=== PATIENT | female | born 1995 | race Caucasian/White ===

== ENCOUNTER 2018-11-04 12:32 | Emergency (ER) | payer MEDICAID ==
[2018-11-04 12:57] VITALS: Wt 61.4 kg
[2018-11-04] MEDS ORDERED: VISTARIL25 MG PO (15:34)
[2018-11-04 16:09] VITALS: BP 120/67
== END 2018-11-04 16:10 | disposition home or self-care (01) ==
LOC: D.ER 12:32
DX: L25.9 Unspecified contact dermatitis, unspecified cause (principal)

== ENCOUNTER 2019-03-19 18:45 | Emergency (ER) | payer MEDICAID ==
[~2019-03-19] VITALS: Ht 167.6 cm; Wt 59.1 kg
[~2019-03-19 18:45] MED LIST: VISTARIL25 MG PO
[2019-03-19 18:49] VITALS: Ht 167.6 cm; Wt 59.1 kg
[2019-03-19 19:11] LABS: BASOPHILS 0.5 % (0-2); EOSINOPHILS 2.4 % (0-7); HEMATOCRIT 34.9 % (36.0-48.0); HEMOGLOBIN 12.1 g/dL (12-16); IMMATURE GRANULOCYTES 0.2 % (0-5); LYMPHOCYTES 27.5 % (15-50); MCH 30.1 pg (26.0-34.0); MCHC 34.7 g/dL (31.0-37.0); MCV 86.8 fL (80.0-100.0); MEAN PLATELET VOLUME 9.8 fL (7.4-10.4); MONOCYTES 11.6 % (2-11); NEUTROPHILS 57.8 % (40-80); PLATELET COUNT 188 10x3/uL (130-400); RBC 4.02 10x6/uL (4.00-5.40); RDW 12.4 % (11.5-14.5); WBC 6.7 10x3/uL (4.8-10.8)
[2019-03-19 19:33] LABS: CALC OSMOLALITY 276 mosm/kg (275-300); CALCIUM 8.6 mg/dL (8.5-10.1); CARBON DIOXIDE 26.3 mmol/L (21.0-32.0); CHLORIDE - SERUM 105 mmol/L (98-107); CREATININE - SERUM 0.6 mg/dL (0.6-1.3); GLUCOSE 93 mg/dL (74-106); POTASSIUM - SERUM 3.3 mmol/L (3.5-5.1); SODIUM 139 mmol/L (136-145); UREA NITROGEN 10 mg/dL (7-18); eGFR NON AFRICAN AMERICAN > 90 mL/min (90-120)
[2019-03-19 19:40] LABS: ALBUMIN 3.5 g/dL (3.4-5.0); ALKALINE PHOSPHATASE 38 U/L (46-116); ALT (SGPT) 17 U/L (10-68); BILIRUBIN - TOTAL 0.28 mg/dL (0.2-1.3); PROTEIN - SERUM 7.1 g/dL (6.4-8.2)
[2019-03-19 20:58] VITALS: BP 132/87
== END 2019-03-19 20:58 | disposition home or self-care (01) ==
LOC: D.ER 18:45
PROVIDERS: Family Medicine
DX: O03.6 Delayed or excessive hemorrhage following complete or unspecified spontaneous abortion (principal); Z72.0 Tobacco use

== ENCOUNTER 2019-05-01 15:36 | Emergency (ER) | payer MEDICAID ==
[~2019-05-01] VITALS: Ht 167.6 cm; Wt 57.7 kg
[2019-05-01 16:15] VITALS: Ht 167.6 cm; Wt 57.7 kg
[2019-05-01] MEDS ORDERED: FLUTICASONE PRO16 GM NASAL (19:05)
[2019-05-01 19:30] VITALS: BP 110/74
== END 2019-05-01 19:31 | disposition home or self-care (01) ==
LOC: D.ER 15:36
DX: J32.9 Chronic sinusitis, unspecified (principal); Z72.0 Tobacco use